=== PATIENT | male | born 1955 | race Caucasian/White ===

== ENCOUNTER 2023-11-15 13:48 | Outpatient (OUT) | payer OTHER, SELFPAY ==
--- NOTE | 2023-11-15 13:56 | CA_ITS ---
Patient Name: ANG RESENDIZ MR#: [id number] : 1955 Exam Date: 11/15/2023 Ordering Doctor: DR JUAN SIFUENTES M.D. ECHOCARDIOGRAM REPORT PROCEDURE: CA ECHO DOPPLER COMPLETE INDICATIONS: VSD, Nonrheumatic mitral regurgitation COMPARISON: None. DESCRIPTION: COMPLETE ECHOCARDIOGRAM Real-time transthoracic echocardiography with 2D, M-mode, spectral and color flow Doppler performed. QUALITY: Technical quality was good. LEFT VENTRICLE: Normal chamber size. Borderline left ventricular hypertrophy. Global left ventricular systolic function is normal. LV EF: Visual estimation of left ventricular ejection fraction is 65-70%. DIASTOLIC: Normal diastolic function. ATRIAL SEPTUM: LEFT ATRIUM: Mild dilatation. RIGHT ATRIUM: Moderate dilatation. RIGHT VENTRICLE: Mild dilatation. Normal right ventricular systolic function. TRICUSPID VALVE: Normal mobility and thickness. No stenosis with trivial regurgitation. Mild pulmonary hypertension. RVSP 36 mmHg MITRAL VALVE: Very mild anterior and posterior mitral valve leaflet prolapse. No evidence of mitral valve stenosis. There is no mitral annular calcification. Trivial mitral regurgitation. AORTIC VALVE: Normal trileaflet appearance. Thickened aortic valve. Normal leaflet mobility. No evidence of aortic valve stenosis. Mild aortic regurgitation. AORTIC ROOT: Normal diameter and appearance. PULMONIC VALVE: Normal thickness and mobility. No stenosis. Mild regurgitation. PERICARDIUM: No evidence of pericardial effusion. IVC: Moderate dilatation. Measuring 2.4 cm. Collapses with inspiration. PLEURA: CONCLUSION: 1. The left ventricle is normal in size and exhibits normal systolic function. LVEF is estimated at 65 to 70%. 2. Mild right ventricular dilatation with normal systolic function. 3. Mild to moderate biatrial dilatation. 4. Very mild bileaflet mitral valve prolapse without significant regurgitation or stenosis. 5. Mild aortic, tricuspid and pulmonic regurgitation. 6. Mildly elevated right-sided pressures. RVSP is 36 mmHg. 7. The previously described perimembranous ventricular septal defect was not well-visualized during this study. Adult Echocardiography Procedure Report Left Ventricle LVEDD (3.7 - 5.6 cm): 4.70 cm LVESD (2.2 - 4.0 cm): 2.91 cm LVIVS thickness (0.6 - 1.2 cm): 0.97 cm LVPW thickness (0.5 - 1.0 cm): 1.07 cm e': 0.16 m/s E - e': 7.79 LVOT Max Gradient: 3.37 mm[Hg] LVOT Area (cm2): 0.92 m/s Peak Velocity (LVOT): 0.92 m/s Mean Velocity (LVOT): 0.54 m/s LVOT Diameter 2.00 cm Left Ventricular Ejection Fraction: 65-70 % Left Atrium LA Volume Index (2D A2C): 32.39 ml/m2 Left Atrium Systolic Dimension: 3.54 cm Mitral Valve MV E to A Ratio: 1.83 Mitral Valve A-Wave Peak Velocity: 0.68 m/s Mitral Valve E-Wave Peak Velocity: 1.24 m/s Right Ventricle RV Internal Diastolic Dimension: 4.32 cm Aorta AO Root Diam: 3.23 cm Ascending Ao Diam: 2.77 cm Aortic Valve AoV Area (Peak Mau): 2.47 cm2, 2.47 cm2 AoV Area (VTI): 2.51 cm2, 2.51 cm2 Peak Velocity(Antegrade Flow): 1.17 m/s Peak Gradient(Antegrade Flow): 5.49 mm[Hg] Mean Velocity(Antegrade Flow): 0.77 m/s Mean Gradient(Antegrade Flow): 2.83 mm[Hg] Velocity Time Integral: 30.89 cm Tricuspid Valve Peak Velocity (Regurgitant Flow): 2.63 m/s, 2.60 m/s, 2.35 m/s Pulmonic Valve Mean Gradient: 2.27 mm[Hg], 2.70 mm[Hg] Mean Velocity: 0.70 m/s, 0.78 m/s Peak Velocity: 1.01 m/s Peak Gradient: 3.81 mm[Hg], 4.39 mm[Hg] Right Atrium Right Atrium Systolic Pressure: 134.72 ml, 134.72 ml Dictated by: Juan Sifuentes M.D. on 11/15/2023 at 18:27 Approved by: Juan Sifuentes M.D. on 11/15/2023 at 18:41
== END 2023-11-15 13:49 | disposition home or self-care (01) ==
LOC: CARD 13:52
PROVIDERS: PCP Family Medicine; Visit Provider Internal Medicine Interventional Cardiology
DX: Q21.0 Ventricular septal defect (principal); I34.0 Nonrheumatic mitral (valve) insufficiency
CPT/HCPCS: 93306

== ENCOUNTER 2024-12-05 13:44 | Outpatient (OUT) | payer MEDICARE, SELFPAY ==
--- OUTSIDE RECORDS SUMMARY | 2024-06-05 09:00 | XMS_ITS ---
Author Organization [facility] in [place] Address [address] [place] [address] Care Team Providers Care Founder And Chief Technical Officer Name Role Phone Omayra Pope CNP Primary Care Provider Yaron Sabillon [phone] Allergies Allergen (clinical drug ingredient) Drug/Non Drug Allergy documented on EMR Reaction Allergy Type Onset Date Status Penicillin Edema Drug Allergy Active REASON FOR VISIT face to face LILA Medications Medication SIG (Take, Route, Frequency, Duration) Notes Start Date End Date Status Atorvastatin Calcium 40 MG 1 tablet Oral ly Once a day Active Eliquis 5 MG 1 tablet Orally Twic e a day Active Lisinopril 10 MG TAKE 1 TABLET BY OMAYRA TH EVERY DAY IN THE MORNING Oral for 90 Days Active Social History Tobacco Use: Social History Observation Description Date Details (start date - stop date) Never Smoker NA - NA Tobacco Control (Standard) Question Answer Notes Tobacco use: Nonsmoker Vital Signs Weight 202.2 lbs 06/05/2024 Height 72 in 06/05/2024 Blood pressure systolic 129 mm Hg 06/05/19 25 Blood pressure diastolic 75 mm Hg 025 Temperature 97.0 degrees Fahrenheit 06/05/19 25 Heart Rate 63 /min 06/05/2024 Respiratory Rate 18 /min 06/05/2024 BMI 27.42 kg/m2 06/05/2024 Oximetry 98 % 06/05/2024 Encounters Encounter Location Date Provider Diagnosis Pulmonary Medicine [address] [address] 06/05/2024 Yaron Fernandez Obstructive sleep apnea G47.33 ; Cough variant asthma J45.991 and Multiple pulmonary nodules R91.8 Assessments Encounter Date Diagnosis (ICD Code) Assessment Notes Treatment Notes Treatment Clinical Notes Section Notes 06/05/2024 Obstructive sleep apnea (ICD-10 - G47.33) PSG 01/12/2022: AHI 25 Zncw-eu-pxpi encounter performed with the patient to document continued need for PAP therapy. -PSG 01/12/2022: AHI 25 -CPAP Titration 02/09/2022: AHI 4 with CPAP [id number] THE FOLLOWING IS HISTORICAL DATA FROM 08/30/2023: -Compliance was reviewed from: 08/01/2022 - 08/30/2022-Total days used: (87%)-Total of all days >4 hours of use: 24/30 (80%)-Current mode & pressures: CPAP 10cm H2O -Initial AHI (01/12/2022): 25-Residual AHI: 1.4-Air leak: Median 4.2L/minWE ATTEMPTED NUMEROUS TIMES TO OBTAIN COMPLIANCE DATA FROM [employer], WHICH THEY NEVER SENT TO US. THIS SHOULD NOT IMPACT HIS COMPLIANCE IN MY PROFESSIONAL OPINION AND IF THERE IS AN ISSUE, IT SHOULD FALL ON [employer] [facility]. Both this office and the patient have had difficulty communicating with [employer] -we still have yet to obtain any compliance data from them. The patient is so frustrated that he changed his insurance companies due to [employer]. He still has a CPAP, but is not using it out of fear that he will be charged for it. He states he has made contact with them about returning it, but he has never received any reply. For now, I advised the patient to use his CPAP at bedtime. Will see if we can get him a new CPAP through a new DME; he previously had [facility] prior to [facility]. The patient voiced that he wants to use his CPAP and will continue to use it. Will send an order to [facility] and see what the neck step are, such as having to wait until his original CPAP is returned, he will continue using his CPAP with a simple DME swab, need to repeat sleep study, or dispensing of a new CPAP. He already has a follow-up appointment August 28; he was instructed to keep this for potential CPAP compliance follow-up. 06/05/2024 Cough variant asthma (ICD-10 - J45.991) Previously on Breo. He states his coughing and wheezing remains resolved. BANKS is attributed to his underlying cardiac issues. 06/05/2024 Multiple pulmonary nodules (ICD-10 - R91.8) Monitored from 2018 - 2021 without any change. Repeat chest CT 11/21/2023 showed no changes from 10/12/2021. No further monitoring is required per current Fleischner Society guidelines. Plan Of Treatment Treatment Notes Assessment Notes Obstructive sleep apnea Ojfd-ow-rgik encounter performed with the patient to document continued need for PAP therapy. -PSG 01/12/2022: AHI 25 -CPAP Titration 02/09/2022: AHI 4 with CPAP [id number] THE FOLLOWING IS HISTORICAL DATA FROM 08/30/2023: -Compliance was reviewed from: 08/01/2022 - 08/30/2022-Total days used: 26/30 (87%)-Total of all days >4 hours of use: 24/30 (80%)-Current mode & pressures: CPAP 10cm H2O -Initial AHI (01/12/2022): 25-Residual AHI: 1.4-Air leak: Median 4.2L/minWE ATTEMPTED NUMEROUS TIMES TO OBTAIN COMPLIANCE DATA FROM [employer], WHICH THEY NEVER SENT TO US. THIS SHOULD NOT IMPACT HIS COMPLIANCE IN MY PROFESSIONAL OPINION AND IF THERE IS AN ISSUE, IT SHOULD FALL ON [employer]. Both this office and the patient have had difficulty communicating with [employer] -we still have yet to obtain any compliance data from them. The patient is so frustrated that he changed his insurance companies due to [employer]. He still has a CPAP, but is not using it out of fear that he will be charged for it. He states he has made contact with them about returning it, but he has never received any reply. For now, I advised the patient to use his CPAP at bedtime. Will see if we can get him a new CPAP through a new DME; he previously had [facility] prior to [facility]. The patient voiced that he wants to use his CPAP and will continue to use it. Will send an order to [facility] and see what the neck step are, such as having to wait until his original CPAP is returned, he will continue using his CPAP with a simple DME swab, need to repeat sleep study, or dispensing of a new CPAP. He already has a follow-up appointment August 28; he was instructed to keep this for potential CPAP compliance follow-up. Cough variant asthma Previously on Breo. He states his coughing and wheezing remains resolved. BANKS is attributed to his underlying cardiac issues. Multiple pulmonary nodules Monitored from 2018 - 2021 without any change. Repeat chest CT 11/21/2023 showed no changes from 10/12/2021. No further monitoring is required per current Fleischner Society guidelines. Next Appt Details Follow Up: Keep 08/28/2024 agnes ointment, Reason: Provider Name:Yaron Fernandez, 08/26/2025 08:00:00 AM, [address] [place], [address], Procedure Notes * Category Sub-Category Detail Notes PFT Data: 11/24/2021: NOMS-F EV1/FVC: 76%-FEV1: 124%-FVC: 128%-ORR01-80%: 127%-Bronchodilator response: None-RV: 50%-T%-DLCO: 87%-Flow-volume loop: Mild scooping 02/14/2017: [facility]-FEV1/FVC: 69%-FEV1: 98%-FVC: 102%-DMZ52-57%: 65%-Bronchodilator response: None-RV: 118%-T%-DLCO: 81%-Flow-volume loop: Mild scooping Progress Notes * Mario RESENDIZ ADOB:1954 (69 yo M)Acc No.[id number]:06/05/2024 Follow Up Patient: Mario ROSE Provider: Bere Fernandez DO :1955 A ge:69 Y S ex:Male Date:06/05/2024 Address:[address] [place], [place] [id number] Pcp:Omayra Pope, COMPUTER CONSULTANT Check In:12:47 PM ESTCheck O ut:01:30 PM EST Subjective: * Chief Complaints: * f arlene to face LILA * HPI: E pworth Sleepiness Scale: Patient is here for new etys-sd-bktm visit regarding his CPAP.� He previously had [facility] with [facility]. Unfortunately, I must say they have been horrible to work with. We have not been able to receive any compliance data to verify his compliance, nor assess for any concerns (e.g. development of central sleep apneas). The patient also complains that he has not been able to receive supplies on a regular basis from them.� [facility]'s lack of communication and response was a major driving factor for the patient to change insurance companies over to [facility] advantage. Due to the change in his insurance company he was brought in today for a [id number]-wslf in the event he can get a new machine since [facility]'s management of the CPAP has been atrocious. Patient stopped using his CPAP after May 22 as he was concerned that he would be charged for the CPAP since his insurance was changing. He states he contacted [facility] about returning the CPAP, but he was told that they would get back to him, and (not unexpectedly) he has yet to receive a return call from them. He has noticed some more fragmented sleep since stopping the CPAP, but he is using humidifier at night which is making it little bit more easy to breathe. He states his cough variant asthma is doing well; he has no complaints of cough or wheezing. He does have baseline shortness of breath with activity. He follows with [facility], with last visit on 11/21/2023 reviewed. They see him for PAF, CAD, and ASD. Patient had a chest CT done on 11/08/2023. There is no change compared to 10/12/2021. He continues to have a calcified right upper lobe 1 cm nodule. MA Intake Comments:. Idabel Sleepiness Scale C michele of dozing while sitting and reading:�2 - Moderate Chance C michele of dozing while watching TV: 2 - Moderate Chance C michele of dozing while sitting in a public place: 1 - Slight Chance C michele of dozing as a passenger in a car for an hour without a break: 1 - Slight Chance C michele of dozing while lying down in the afternoon to rest: 1 - Slight Chance C michele of dozing while sitting and talking to someone: 1 - Slight Chance C michele of dozing while sitting quietly after lunch: 1 - Slight Chance C michele of dozing in a stopped car for a few minutes in traffic: 0 - Never T OTAL SCORE: 9 Patient presents for a follow-up for LILA. Patient states he is not currently using the PAP machine since April due to ongoing issues with the DME company. Patient states he switched insurance companies from [email or web address] to a new insurance for 2024. Patient reports having issues receiving supplies and reports ongoing problems with [email or web address] [facility]. Our office has not been able to obtain compliance data since the patient switched from [employer] to [email or web address] two years ago. Numerous attempts were made to obtain compliance without success. Patient reports great benefit while using his PAP. Patient is under the care of [facility]. * ROS: G eneral/Constitutional: Fever or sweats d enies. C hange of appetite d enies. C hills d enies. W eight Change d enies. H EENT: Dry mouth d enies. S ore throat d enies. N osebleed d enies. O ral Ulcers d enies. P ost Nasal Drip D enies. C ongestion�Admits - with CPAP. H oarseness D enies. C ardiovascular: Tachycardia d enies. C hest pain d enies. P alpitations d enies. R espiratory: Pleurisy D enies. D yspnea d enies. C ough r are, dry. H emoptysis d enies. W heezing d enies. G astrointestinal: Acid Reflux/GERD/Heartburn d enies. M usculoskeletal: Arthralgias/joint pain D enies. S kin: Rash d enies. N eurologic: Seizures d enies. T remor d enies. H ematology: Abnormal Bleeding d enies. P sychiatric: Anxiety d enies. 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 M other: diagnosed with Unspecified heart disease. * Social History: T obacco Use: T obacco Control (Standard) T obacco use: N onsmoker Electronic Cigarette use C urrent user N o M iscellaneous: O ccupation O ccupation: R etieveline, Works part-time [employer] Pets: none. D rugs/Alcohol: D rugs H ave you used drugs other than those for medical reasons in the past 12 months? N o D oes the Patient have a History of Drug Abuse in the Past? N o Caffeine I ntake: n one Do you drink alcohol?: Yes, Socially. Do you smoke marijuana?: Denies. * Medications: T akingAtorvastatin Calcium 40 MG Tablet 1 tablet Orally Once a day Eliquis(Apixaban) 5 MG Tablet 1 tablet Orally Twice a day Lisinopril 10 MG Tablet TAKE 1 TABLET BY MOUTH EVERY DAY IN THE MORNING Oral Medication List reviewed and reconciled with the patientTaking Atorvastatin Calcium 40 MG Tablet 1 tablet Orally Once a day Taking Eliquis(Apixaban) 5 MG Tablet 1 tablet Orally Twice a day Taking Lisinopril 10 MG Tablet TAKE 1 TABLET BY MOUTH EVERY DAY IN THE MORNING Oral Medication List reviewed and reconciled with the patient * Allergies: P enicillin: Edema - Allergyno[Allergies Verified] Objective: * Vitals: W t:202.2lbs, Ht: 72 in, BP:sittin/75mm Hg, Temp:Forehead:97.0F, HR:63/min, RR:18/min, BMI:27.42Index, Oxygen sat %:Room Air:98%, Ht-cm: 182.88 cm, Wt-k.72 kg. * Examination: E xam: GENERAL APPEARANCE: A ppears comfortable, in no distress.� Skin N ormal. Mouth P ink and moist. Oropharynx/Tongue M allampati Class III. Trachea M idline. Chest N ormal. Respiratory Normal M ovements, E ffort N ormal. Auscultation N ormal breath sounds. Cardiac R egular rate and rhythm. Gastrointestinal N ormal. Vascular N o edema. Musculoskeletal N ormal posture. Neurological F ocal, intact. Psychiatric A lert and oriented x3. Mentation/Cognition N ormal. Assessment: * Assessment: 1. O bstructive sleep apnea - G47.33 (Primary) N otes :PSG 01/12/2022: AHI 25 2 . C ough variant asthma - J45.991 3 . M ultiple pulmonary nodules - R91.8 Plan: * Treatment: 2. C ough variant asthma Notes: Previously on Breo. He states his coughing and wheezing remains resolved. BANKS is attributed to his underlying cardiac issues. 3. M ultiple pulmonary nodules Notes: Monitored from 2018 - 2021 without any change. Repeat chest CT 11/21/2023 showed no changes from 10/12/2021. No further monitoring is required per current Fleischner Society guidelines. * Procedures: P FT: Data: 11/24/2021: NOMS -FEV1/FVC: 76% -FEV1: 124% -FVC: 128% -AUW64-29%: 127% -Bronchodilator response: None -RV: 50% -T% -DLCO: 87% -Flow-volume loop: Mild scooping 02/14/2017: [facility] -FEV1/FVC: 69%-FEV1: 98%-FVC: 102%-QNP15-12%: 65%-Bronchodilator response: None- RV: 118%-T%-DLCO: 81%-Flow-volume loop: Mild scooping . * Procedure Codes: * Preventive Medicine: COVID Vaccination: H as patient had COVID Vaccination? COVID Vaccination N o Patient Refused Immunization Status: P neumovacc P t Refused. I nfluenza P t Refused. B oostrix 0 12/13/2022. Screenings/Counseling: F ALL RISK SCREENING Fall Risk Assessment: N o falls in the past year Are you afraid of falling? N o T OBACCO ACTION PLAN Exclusion: M edical Reason Non Smoker Type of Medical Reason: N ot indicated F MAURICIO EXCLUSION Reason: P atient Reason refused/declined Type of Patient Reason: D rug declined by patient B MD ACTION PLAN Above Normal BMI Follow-up D ietary management education, guidance, and counseling * Follow Up: Sonal mtz 08/28/2024 appointment * * Sign off status: Completed Visit Status: C HK (Check Out) true * Provider: Bere Fernandez, DO Date: 0 06/05/2024 Generated for Printi ng/Faxing/eTransmitting on: 0 12/05/2024 01:51 PM EDT History and Physical Notes * HPI (History of Present Illness) Category Sub-Category Detail Notes Category Not es Idabel Sleepiness Scale Idabel Sleepiness Scale Chance of dozing while sitting and reading:: 2 - Moderate Chance Patient presents for a follow-up for LILA. Patient states he is not currently using the PAP machine since April due to ongoing issues with the DME company. Patient states he switched insurance companies from [email or web address] to a new insurance for 2024. Patient reports having issues receiving supplies and reports ongoing problems with [email or web address]. Our office has not been able to obtain compliance data since the patient switched from [employer] to [email or web address] two years ago. Numerous attempts were made to obtain compliance without success. Patient reports great benefit while using his PAP. Patient is under the care of [facility]. Chance of dozing while watching TV:: 2 - Moderate Chance Chance of dozing while sitting in a publ ic place:: 1 - Slight Chance Chance of dozing as a passen theo in a car for an hour without a break:: 1 - Slight Chance Chance of dozing while lying down in the afternoon to rest:: 1 - Slight Chance Chance of dozing while sitting and talki ng to someone:: 1 - Slight Chance Chance of dozing while sitting quietly a fter lunch:: 1 - Slight Chance Chance of dozing in a stopped car for a few minutes in traffic:: 0 - Never TOTAL SCORE:: 9 Examination Category Sub-Category Detail Notes Category Not es Exam GENERAL APPEARANCE: Appears comfortable, in no distress Skin Normal Mouth [place] and moist Trachea Midline Chest Normal Respiratory Normal Movements, Ef fort Normal Auscultation Normal breath sounds Percussion Egophony Bronchophony Fremitus Whispered pectoriloquy Cardiac Regular rate and rhy thm Gastrointestinal Normal Vascular No edema Musculoskeletal Normal posture Neurological Focal, intact Psychiatric Alert and oriented x 3 Mentation/Cognition Normal Oropharynx/Tongue Mallampati Class III
--- OUTSIDE RECORDS SUMMARY | 2024-08-28 09:00 | XMS_ITS ---
Author Organization The [facility] in [place] Address [address] [place] [address] Care Team Providers Care Superintendent Production Name Role Phone Omayra Pope CNP Primary Care Provider Yaron Sabillon [phone] Allergies Allergen (clinical drug ingredient) Drug/Non Drug Allergy documented on EMR Reaction Allergy Type Onset Date Status Penicillin Edema Drug Allergy Active REASON FOR VISIT 1YEAR-LILA Medications Medication SIG (Take, Route, Frequency, Duration) Notes Start Date End Date Status Lisinopril 10 MG TAKE 1 TABLET BY OMAYRA TH EVERY DAY IN THE MORNING Oral for 90 Days Active Eliquis 5 MG 1 tablet Orally Twic e a day Active Atorvastatin Calcium 40 MG 1 tablet Oral ly Once a day Active Social History Tobacco Use: Social History Observation Description Date Details (start date - stop date) Never Smoker NA - NA Tobacco Control (Standard) Question Answer Notes Tobacco use: Nonsmoker Vital Signs Weight 198.8 lbs 08/28/2024 Height 72 in 08/28/2024 Blood pressure systolic 114 mm Hg 08/29/19 25 Blood pressure diastolic 61 mm Hg 025 Temperature 96.6 degrees Fahrenheit 08/29/19 25 Heart Rate 68 /min 08/28/2024 Respiratory Rate 18 /min 08/28/2024 BMI 26.96 kg/m2 08/28/2024 Oximetry 97 % 08/28/2024 Encounters Encounter Location Date Provider Diagnosis Pulmonary Medicine [address] [address] 08/28/2024 Yaron Fernandez Obstructive sleep apnea G47.33 ; Cough variant asthma J45.991 and Multiple pulmonary nodules R91.8 Assessments Encounter Date Diagnosis (ICD Code) Assessment Notes Treatment Notes Treatment Clinical Notes Section Notes 08/28/2024 Obstructive sleep apnea (ICD-10 - G47.33) PSG 01/12/2022: AHI 25 Lksg-jy-lwct encounter performed with the patient to document continued need for PAP therapy. -Current DME: [facility] -PSG 01/12/2022: AHI 25 -CPAP Titration 02/09/2022: AHI 4 with CPAP [id number] -Compliance was reviewed from 07/28/2024 - 08/26/2024 -Total days used: 30 (100%) -Total of all days >4 hours of use: 30 (100%) -Current model, mode, & set pressure: AirSense 11 Auto [id number] -Residual AHI: 0.7 -Air leak (median): 4.1L/min -Mask/harness fitting: Well -Sleep quality: Will wake up almost every night with flatus -Daytime hypersomnolence: Denies with CPAP use -Recommendations: He is doing very well with his CPAP and states he is very happy with the change in DME from [facility] to [facility]. He has superb compliance (100%). His gerri complaint is increased flatus with CPAP use (about 3-4AM every night). He denies noticeable aerophagia, but it is possible he could have silent aerophagia. He does not sleep with a wedge pillow. Discussed strategies to decrease production of gas, such as monitoring consumption of cruciferous vegetables, etc. Other option is to change him from the set pressure of [id number] to auto-CPAP, which would be reasonable in this patient d/t his excellent compliance and residual AHI 0.7. Patient voiced agreement. Will send order for auto-CPAP [id number] - I asked patient to let us know how he tolerates the change in settings. Unless there are any other major issues, will have him return in 1 year. -The patient was reminded to continue to wear the PAP @ bedtime and with any naps. -This bxvs-xi-afei visit comes with my authorization that the patient's DME may request to renew, reorder, and/or replace tubing, supplies, mask, and/or PAP device (if applicable). 08/28/2024 Cough variant asthma (ICD-10 - J45.991) Prior treatment: Bridgette Patient has no complaints today. 08/28/2024 Multiple pulmonary nodules (ICD-10 - R91.8) Monitored from 2018 - 2021 without any change. Repeat chest CT 11/21/2023 showed no changes from 10/12/2021. No further monitoring is required per current Fleischner Society guidelines. Plan Of Treatment Treatment Notes Assessment Notes Obstructive sleep apnea Radr-qr-vntu encounter performed with the patient to document continued need for PAP therapy. -Current DME: [facility] -PSG 01/12/2022: AHI 25 -CPAP Titration 02/09/2022: AHI 4 with CPAP [id number] -Compliance was reviewed from 07/28/2024 - 08/26/2024 -Total days used: 30/ (100%) -Total of all days >4 hours of use: 30/30 (100%) -Current model, mode, & set pressure: AirSense 11 Auto [id number] -Residual AHI: 0.7 -Air leak (median): 4.1L/min -Mask/harness fitting: Well -Sleep quality: Will wake up almost every night with flatus -Daytime hypersomnolence: Denies with CPAP use -Recommendations: He is doing very well with his CPAP and states he is very happy with the change in DME from [facility] to [facility]. He has superb compliance (100%). His gerri complaint is increased flatus with CPAP use (about 3-4AM every night). He denies noticeable aerophagia, but it is possible he could have silent aerophagia. He does not sleep with a wedge pillow. Discussed strategies to decrease production of gas, such as monitoring consumption of cruciferous vegetables, etc. Other option is to change him from the set pressure of 87miZ8I to auto-CPAP, which would be reasonable in this patient d/t his excellent compliance and residual AHI 0.7. Patient voiced agreement. Will send order for auto-CPAP [id number] - I asked patient to let us know how he tolerates the change in settings. Unless there are any other major issues, will have him return in 1 year. -The patient was reminded to continue to wear the PAP @ bedtime and with any naps. -This imyg-sa-evpo visit comes with my authorization that the patient's DME may request to renew, reorder, and/or replace tubing, supplies, mask, and/or PAP device (if applicable). Cough variant asthma Prior treatment: Bridgette Patient has no complaints today. Multiple pulmonary nodules Monitored from 2018 - 2021 without any change. Repeat chest CT 11/21/2023 showed no changes from 10/12/2021. No further monitoring is required per current Fleischner Society guidelines. Next Appt Details Follow Up: 1 Year, Reason: O SA Provider Name:Yaron Fernandez, 08/26/2025 08:00:00 AM, [address] [place], [address], Procedure Notes * Category Sub-Category Detail Notes PFT Data: 11/24/2021: NOMS-F EV1/FVC: 76%-FEV1: 124%-FVC: 128%-JZI42-00%: 127%-Bronchodilator response: None-RV: 50%-T%-DLCO: 87%-Flow-volume loop: Mild scooping 02/14/2017: [facility]-FEV1/FVC: 69%-FEV1: 98%-FVC: 102%-HBJ23-36%: 65%-Bronchodilator response: None-RV: 118%-T%-DLCO: 81%-Flow-volume loop: Mild scooping Progress Notes * Mario RESENDIZ ADOB:1954 (69 yo M)Acc No.[id number]:08/28/2024 Follow Up Patient: Remy ZAKMario JACOBS Angélica Provider: Bere Fernandez DO :1955 A ge:69 Y S ex:Male Date:08/28/2024 Address:[address] [place], [place] [id number] Pcp:Omayra Pope, [place]ER Check In:12:49 PM ESTCheck O ut:01:46 PM EST Subjective: * Chief Complaints: * 1 YEAR-LILA * HPI: E pworth Sleepiness Scale: Patient changed insurances and was able to change from [facility] (which both he and this office have had an atrocious time getting anything from) to [facility]. He states he has had an excellent interaction with [facility] and is very, very happy with them. He has been on his CPAP, set up on 06/18/2024, a nd voices excellent response to it. AHI is only 0.7. 100% compliance. Only concern is bloating & flatus...he states he wakes up nearly every night around 3-4AM and has excessive flatulence. I asked him about any aerophagia, but he denied any bloating in his stomach. MA Intake Comments:. [place] Sleepiness Scale C michele of dozing while sitting and reading:�2 - Moderate Chance C michele of dozing while watching TV: 2 - Moderate Chance C michele of dozing while sitting in a public place: 2 - Moderate Chance C michele of dozing as a passenger in a car for an hour without a break: 1 - Slight Chance C michele of dozing while lying down in the afternoon to rest: 2 - Moderate Chance C michele of dozing while sitting and talking to someone: 2 - Moderate Chance C michele of dozing while sitting quietly after lunch: 2 - Moderate Chance C michele of dozing in a stopped car for a few minutes in traffic: 0 - Never T OTAL SCORE: 1 3 Patient presents for a follow-up for LILA.DME:[facility]. Patient denies any complaints or concerns with his machine. Patient reports good benefit. Patient states since he has switched DME companies from [employer] now to [facility] he has everything he needs for his machine. Patient is under the care of [facility] Cardiology. * ROS: G eneral/Constitutional: Fever or sweats d enies. C hange of appetite d enies. C hills d enies. W eight Change d enies. H EENT: Dry mouth d enies. S ore throat d enies. N osebleed d enies. O ral Ulcers d enies. P ost Nasal Drip D enies. C ongestion�Denies. H oarseness D enies. C ardiovascular: Tachycardia d enies. C hest pain d enies. P alpitations d enies. R espiratory: Pleurisy D enies. D yspnea d enies. C ough r are, dry. H emoptysis d enies. W heezing d enies. G astrointestinal: Acid Reflux/GERD/Heartburn d enies. E xcessive Flatulence a round 3-4AM every night. M usculoskeletal: Arthralgias/joint pain D enies. S kin: Rash d enies. N eurologic: Seizures d enies. T remor d enies. H ematology: Abnormal Bleeding d enies. P sychiatric: Anxiety d enies. * Active Problem List D64.9 Anemia, unspecified Modified On:08/31/2022 Status:confirmed J45.991 Cough variant asthma Modified On:08/30/2023 Status:confirmed Z79.51 nursing home (current) use of inhaled steroids Modified On:08/31/2022 Status:confirmed I34.1 Mitral valve prolaps e Modified On:08/31/2022 Status:confirmed I25.10 Coronary artery dise ase Modified On:08/30/2023 Status:confirmed G47.33 Obstructive sleep ap robbie Modified On:08/30/2023 Status:confirmed R91.8 Multiple pulmonary n odules Modified On:08/31/2022 Status:confirmed * Medical History: * Surgical History: [...] M iscellaneous: O ccupation O ccupation: R etired, Works part-time [employer] Pets: none. D rugs/Alcohol: D rugs H [...] - Allergyno[Allergies Verified] Objective: * Vitals: W t:198.8lbs, Ht: 72 in, BP:sittin/61mm Hg, Temp:Forehead:96.6F, HR:68/min, RR:18/min, BMI:26.96Index, Oxygen sat %:Room Air:97%, Ht-cm: 182.88 cm, Wt-k.18 kg. * Examination: E xam: GENERAL APPEARANCE: [...] Treatment: 2. C ough variant asthma Notes: Prior treatment: Breo Patient has no complaints today. 3. M ultiple pulmonary nodules Notes: Monitored from 2018 - 2021 without any change. Repeat chest CT 11/21/2023 showed no changes from 10/12/2021. No further monitoring is required per current Fleischner Society guidelines. * Procedures: P FT: Data: 11/24/2021: NOMS -FEV1/FVC: 76% -FEV1: 124% -FVC: 128% -CCT25-13%: 127% -Bronchodilator response: None -RV: 50% -T% -DLCO: 87% -Flow-volume loop: Mild scooping 02/14/2017: [facility] -FEV1/FVC: 69%-FEV1: 98%-FVC: 102%-CJO10-88%: 65%-Bronchodilator response: None- RV: 118%-T%-DLCO: 81%-Flow-volume loop: [...] Reason: D rug declined by patient B PA ACTION PLAN Above Normal BMI Follow-up D ietary management education, guidance, and counseling * Follow Up: 1 Year (Reason: LILA) * * Sign off status: Completed Visit Status: C HK (Check Out) true * Provider: Bere Fernandez DO Date: 0 08/28/2024 Generated for Charisma hood/Ghulam/Waqaritting on: 0 12/05/2024 01:51 PM EDT History and Physical Notes * HPI (History of Present Illness) Category Sub-Category Detail Notes Category Not es [place] Sleepiness Scale [place] Sleepiness Scale Chance of dozing while sitting and reading:: 2 - Moderate Chance Patient presents for a follow-up for LILA.DME:[facility]. Patient denies any complaints or concerns with his machine. Patient reports good benefit. Patient states since he has switched DME companies from [employer]) now to [facility] he has everything he needs for his machine. Patient is under the care of [facility] Cardiology. Chance of dozing while watching TV:: 2 - Moderate Chance Chance of dozing while sitting in a publ ic place:: 2 - Moderate Chance Chance of dozing as a passen theo in a car for an hour without a break:: 1 - Slight Chance Chance of dozing while lying down in the afternoon to rest:: 2 - Moderate Chance Chance of dozing while sitting and talki ng to someone:: 2 - Moderate Chance Chance of dozing while sitting quietly a fter lunch:: 2 - Moderate Chance Chance of dozing in a stopped car for a few minutes in traffic:: 0 - Never TOTAL SCORE:: 13 Examination Category Sub-Category Detail Notes Category Not es Exam GENERAL APPEARANCE: Appears comfortable, in no distress Skin Normal Mouth [place] and moist Trachea Midline Chest Normal Respiratory Normal Movements, Ef fort Normal Auscultation Normal breath sounds Percussion Egophony Bronchophony Fremitus Whispered pectoriloquy Cardiac Regular rate and rhy thm Gastrointestinal Normal Vascular No edema Musculoskeletal Normal posture Neurological Focal, intact Psychiatric Alert and oriented x 3 Mentation/Cognition Normal Oropharynx/Tongue Mallampati Class III
--- OUTSIDE RECORDS SUMMARY | 2024-09-24 07:24 | XMS_ITS ---
Author Organization The [facility] in [place] Address [address] [place] [address] Care Team Providers Care Armament Repairer Name Role Phone Omayra Pope CNP Primary Care Provider Unava ilYaron Cuello Unavailable [phone] REASON FOR VISIT PAP Machine Encounters Encounter Location Date Provider Diagnosis Pulmonary Medicine [place] [address] [place] [address] 09/24/2024 Yaron Fernandez Plan Of Treatment Next Appt Details Provider Name:Yaron Fernandez, 08/26/2025 08:00:00 AM, [address] [place], [address], Progress Notes * Mario RESENDIZ ADOB:1954 (69 yo M)Acc No.[id number]:09/24/2024 Patient: Mario ROSE :1955 A ge:69 Y S ex:Male Address:[address] [place] [address] [address], [place], [address] * true * Date: Generated for Charisma hood/Falaurenceg/eTransmitting on: 0 12/05/2024 01:50 PM EDT
--- OUTSIDE RECORDS SUMMARY | 2024-12-05 13:51 | XMS_ITS | Encounter Summary ---
Author Organization [facility] Address [address] [place] [address] Care Team Providers Care Public Health Educator Name Role Phone Maddie Spencer MD Unavailable Maddie Spencer MD Primary Care Provider [phone] Maddie Spencer MD Unavailable [phone] Encounter Details Date Type Department Care Team (Late st Contact Info) Description 01/14/2023 Abstract [facility] [address] [place] [address] Maddie Spencer MD Social History Tobacco Use Types Packs/Day Years Used Date Smoking Tobacco: Never Assessed Sex and Gender Information Value Date Recorded Sex Assigned at Male 11/07/2023 8:12 PM EDT Legal Sex Male 8:01 PM EDT Gender Identity Male 11/07/2023 8:12 PM EDT Sexual Orientation Not on file documented as of this encounter Plan of Treatment Not on file documented as of this encounter Visit Diagnoses Not on filedocumented in this encounter Care Teams Public Health Educator Relationship Specialty Start Date End Date Maddie Spencer MD PCP - [facility] 03/23/21 05/22/24 Maddie Spencer MD PCP - General Family Medicine 09/28/22 Maddie Spencer MD PCP - [place] 05/23/2405/22 documented as of this encounter
--- OUTSIDE RECORDS SUMMARY | 2024-12-05 13:51 | XMS_ITS | Clinical Summary ---
Author Organization [facility] Healthcare Address [address] [place] [address] Care Team Providers Care Power Supply Engineer Name Role Phone Maddie Spencer MD Primary Care Provider [phone] Maddie Spencer MD Unavailable [phone] Allergies Active Allergy Reactions Criticality Noted Date Comments Penicillins 07/16/2022 Other Reaction(s): tongue swelling Medications Eliquis 5 MG tablet Take 1 tablet by mouth in the morning and 1 tablet before bedtime. 3 Active atorvastatin (Lipitor) 40 MG tablet Take 40 mg by mouth at bedtime 4 Active lisinopril 10 MG tabletIndication s:Essential hypertension TAKE 1 TABLET BY MOUTH EVERY DAY IN THE MORNING 90 tablet 3 4 Active NON FORMULARY PROSYNBIOTIC / LIVAPLEX/ ZINCHELATE Active omega-3 acid ethyl esters (Lovaza) 1 g capsule Take 1 g by mouth in the morning and 1 g before bedtime. 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 10/11/2023 Mild mitral valve prolapse 10/11/2023 Obstructive sleep apnea (adult) (pediatric) 09/21 Occupational exposure to environmental pollution 10/11/2023 Paroxysmal atrial fibrillation 10/11/2023 Primary hypertension 10/11/2023 Pulmonary arterial hypertension 10/11/2023 Tinea manuum 10/11/2023 Pulmonary nodule seen on imaging study Cough variant asthma 09/01/2023 Multiple pulmonary nodules 09/01/2023 Coronary artery disease invo lving [place] coronary artery of [place] heart without angina pectoris 07/16/2022 Overview (10/11/2023): Last Assessment & Plan: Coronary artery disease is stable without concerning symptoms Another extended d/w pt and regarding noted 50% stenosis of RCA and sxwe-wca-njecrjklycn CAD of all other coronary arteries, importance of prevention of worsening CAD and stenosis r/t cholesterol build up and importance of continuing lipitor/statin and he voiced understanding and is agreeable to resume lipitor. Script sent and will repeat lipid and liver function in 2-3 months- script given to pt. continue risk factor modifications- heart healthy diet, regular exercise as tolerated and continue all medications. Atrial flutter 01/11/2022 Overview (10/11/2023): Last Assessment & Plan: EKG today sinus bradycardia After extended discussion pt is willing to resume eliquis anticoagulation for stroke prophylaxis Script sent to pharmacy Chest pain 12/21/2021 Dyspnea on exertion 12/21/2021 Overview (10/11/2023): Last Assessment & Plan: Currently stable Lightheadedness 12/21/2021 Encounters Date Type Department Care Team Description 10/20/2024 Results Follow-Up [facility] [address] [place] [phone] Omayra Pope NP 10/17/2024 2:00 PM EDT Office Visit [facility] [address] [place] [phone] Omayra Pope NP Medicare annual wellness visit, subsequent (Primary Dx); Primary hypertension ; Paroxysmal atrial fibrillation (HCC); Pulmonary arterial hypertension (HCC); Ventricular septal defect (HCC); Cough variant asthma (HCC); Coronary artery disease involving [place] coronary artery of [place] heart without angina pectoris ; Obstructive sleep apnea (adult) (pediatric); Atrial flutter, unspecified type (HCC); Mild mitral valve prolapse; Atrial dilatation, bilateral; Multiple pulmonary nodules; Anemia, unspecified type; Dyspnea on exertion; Atrial septal defect (HHS-HCC); Cardiomegaly; Tinea manuum; Dependence on other enabling machines and devices; Occupational exposure to environmental pollution; Screening for prostate cancer; Encounter for lipid screening for cardiovascular disease 10/17/2024 [employer]Senso flowsheet [facility] [address] [place] [address] Omayra Pope NP 10/17/2024 Travel from Last 3 Months Immunizations Immunization Administration Dates Next Due Tdap 12/13/2022,05/08/2012 Family History Medical History Relation Name Comments Dementia Father Heart disease Father Heart disease Mother Relation Name Status Comments Brother X 1 Father Mother Social History Tobacco Use Types Packs/Day Years Used Date Smoking Tobacco: Never Passive Smoke Exposure: Past Smokeless Tobacco: Never Tobacco Cessation:Counseling Given: Not Answered Alcohol Use Standard Drinks/Week Comments Yes 0 (1 standard drink = 0.6 oz pur e alcohol) PHQ-2 Answer Date Recorded Patient Health Questionnaire-2 Score 0 10/17/2024 Sex and Gender Information Value Date Recorded Sex Assigned at Male 11/07/2023 8:12 PM EDT Legal Sex Male 8:01 PM EDT Gender Identity Male 11/07/2023 8:12 PM EDT Sexual Orientation Not on file Last Filed Vital Signs Vital Sign Reading Time Taken Comments Blood Pressure 128/72 10/17/2024 2:17 PM EDT Pulse 60 10/17/2024 2:17 PM EDT Temperature - - Respiratory Rate - - Oxygen Saturation - - Inhaled Oxygen Concentration - - Weight 89.4 kg (197 lb) 10/17/2024 2:17 PM EDT Height 182.9 cm (6') 10/17/2024 2:17 PM EDT Body Mass Index 26.72 10/17/2024 2:17 PM EDT Plan of Treatment Health Maintenance Due Date Last Done Comments CT Colonography 1955 Colonoscopy 1955 FOBT 1955 Sigmoidoscopy 1955 Pneumococcal Vaccine: 65+ Ye ars (1 of 2 - PCV) 1974 FIT 06/14/2023 06/14/2022 Influenza Vaccine (#1) 2025 Medicare Annual Wellness (AWV) 10/17/2025 0 10/17/2024, 10/17/2024, 10/12/2023, Additional history exists Colorectal Cancer Screening 11/03/2026 FIT-DNA 11/03/2026 11/04/2023 Procedures Procedure Name Priority Date/Time Associated Diagnosis Comments URINALYSIS REFLEX Routine 10/19/2024 9:2 9 AM EDT Primary hypertension LIPID PANEL Routine 10/19/2024 9:20 AM EDT Encounter for lipid screening for cardiovascular disease PSA, TOTAL Routine 10/19/2024 9:20 AM EDT Screening for prostate cancer COMPREHENSIVE METABOLIC PANEL Routine 10/19/2024 9:20 AM EDT Primary hypertension CBC Routine 10/19/2024 9:20 AM EDT Anemia, unspecified type LAB COLOGUARD COLON CANCER SCREEN Routine 11/04/2023 7:31 AM EDT Screening for colon cancer FECAL GLOBIN BY IMMUNOCHEMISTRY Routine 06/14/2022 12:00 PM EST from Last 3 Months or Most Recently Relevant to Health Maintenance Results * Urinalysis with reflex microscopic (clean catch) (10/19/2024 9:29 AM EDT) COLOR YELLOW YELLOW [facility] APPEARANCE CLEAR CLEAR [facility] SPECIFIC GRAVITY 1.015 1.001 - 1.035 [facility] PH 7.0 5.0 - 8.0 [facility] GLUCOSE NEGATIVE NEGATIVE [facility] BILIRUBIN NEGATIVE NEGATIVE [facility] KETONES NEGATIVE NEGATIVE [facility] OCCULT BLOOD NEGATIVE NEGATIVE [facility] PROTEIN NEGATIVE NEGATIVE [facility] NITRITE NEGATIVE NEGATIVE [facility] LEUKOCYTE ESTERASE NEGATIVE NEGATIVE [facility] SQUAMOUS EPITHELIAL CELLS 0-5 < OR = 5 /HPF [facility] Urine Urine specimen obtained by clean catch procedure / Unknown 10/19/2024 9:29 AM EDT 10/19/2024 2:29 PM EDT Narrative Resulting Agency Comment Performing Organization Information Site ID: [facility] Name: [facility] Address: [address] [place] [phone] Director: Jessica Vidales Omayra Pope ADJUNCT MATHEMATICS INSTRUCTOR LAB URINE ORDERABLES Final Result Performing Organization Address City/[facility]/ZIP Co de Phone Number [facility] * CBC (10/19/2024 9:20 AM EDT) Pathologist [facility] WHITE BLOOD CELL COUNT 4.4 3.8 - 10.8 Thousand/u L [facility] RED BLOOD CELL COUNT 4.30 4.20 - 5.80 Million/uL [facility] HEMOGLOBIN 13.3 13.2 - 17.1 g/dL [facility] HEMATOCRIT 40.0 38.5 - 50.0 % [facility] MCV 93.0 80.0 - 100.0 fL [facility] MCH 30.9 27.0 - 33.0 pg [facility] MCHC 33.3 32.0 - 36.0 g/dL [facility] Comment: For adults, a slight decrease in the calculated MCHC value (in the range of 30 to 32 g/dL) is most likely not clinically significant; however, it should be interpreted with caution in correlation with other red cell parameters and the patient's clinical condition. RDW 13.4 11.0 - 15.0 % [facility] PLATELET COUNT 161 140 - 400 Thousand/u L [facility] MPV 11.4 7.5 - 12.5 fL [facility] Blood Venous blood specimen / Unknown 10/19/2024 9:20 AM EDT 10/19/2024 3:53 PM EDT Narrative [facility] - 10/20/2024 12:33 AM EDT MULTIPLE COLLECTION TIMES FOR SAME TEST TYPE. Resulting Agency Comment Performing Organization Information Site ID: [facility]TW Name: [facility] Address: [address] [place] [phone] Director: Jessica Vidales Omayra Pope ADJUNCT MATHEMATICS INSTRUCTOR LAB BLOOD ORDERABLES Final Result Performing Organization Address City/[facility]/ZIP Co de Phone Number [facility] * PSA (10/19/2024 9:20 AM EDT) PSA, TOTAL 0.24 < OR = 4.00 ng/mL [facility] Comment: The total PSA value from this assay system is standardized against the WHO standard. The test result will be approximately 20% lower when compared to the equimolar-standardized total PSA (Remington Effort). Comparison of serial PSA results should be interpreted with this fact in mind. This test was performed using the Siemens chemiluminescent method. Values obtained from different assay methods cannot be used interchangeably. PSA levels, regardless of value, should not be interpreted as absolute evidence of the presence or absence of disease. Blood Venous blood specimen / Unknown 10/19/2024 9:20 AM EDT 10/19/2024 3:53 PM EDT Narrative [facility] - 10/20/2024 12:33 AM EDT MULTIPLE COLLECTION TIMES FOR SAME TEST TYPE. Resulting Agency Comment Performing Organization Information Site ID: QPT Name: [facility] Address: [address] [place] [address], [address] [place] [phone] Director: Russ Love MD Omayra Pope NP LAB BLOOD ORDERABLES Final Result [facility] * Lipid panel (10/19/2024 9:20 AM EDT) CHOLESTEROL, TOTAL 120 <200 mg/dL [facility] HDL CHOLESTEROL 49 > OR = 40 mg/dL [facility] TRIGLYCERIDES 35 <150 mg/dL [facility] LDL CHOLESTEROL 61 mg/dL (calc) [facility] Comment: Reference range: <100 Desirable range <100 mg/dL for primary prevention; <70 mg/dL for patients with CHD or diabetic patients with > or = 2 CHD risk factors. LDL-C is now calculated using the Nikunj calculation, which is a validated novel method providing better accuracy than the Friedewald equation in the estimation of LDL-C. Arnel SULTANA et al. ASTRID. 2013;310(19): 8062-1631 (http://education.[employer].Spotivate/faq/VFY930) CHOL/HDLC RATIO 2.4 <5.0 (calc) [facility] NON HDL CHOLESTEROL 71 <130 mg/dL (calc) [facility] Comment: For patients with diabetes plus 1 major ASCVD risk factor, treating to a non-HDL-C goal of <100 mg/dL (LDL-C of <70 mg/dL) is considered a therapeutic option. Blood Venous blood specimen / Unknown 10/19/2024 9:20 AM EDT 10/19/2024 3:53 PM EDT Narrative [facility] - 10/20/2024 12:33 AM EDT MULTIPLE COLLECTION TIMES FOR SAME TEST TYPE. Resulting Agency Comment Performing Organization Information Site ID: QPT Name: [facility] Address: [address] [place] [address], [address] [place] [phone] Director: Russ Love MD Omayra Pope NP LAB BLOOD ORDERABLES Final Result [facility] * Comprehensive metabolic panel (10/19/2024 9:20 AM EDT) [facility] Glucose 89 65 - 99 mg/dL [facility] Comment: Fasting reference interval BUN 16 7 - 25 mg/dL [facility] Creatinine 0.92 0.70 - 1.35 mg/dL [facility] EGFR 90 > OR = 60 mL/min/1. 73m2 [facility] BUN/CREATININE RATIO SEE NOTE: (calc) [facility] Comment: Not Reported: BUN and Creatinine are within reference range. Sodium 140 135 - 146 mmol/L [facility] Potassium, Bld 4.3 3.5 - 5.3 mmol/L [facility] Chloride 105 98 - 110 mmol/L [facility] Carbon Dioxide 29 20 - 32 mmol/L [facility] Calcium 9.7 8.6 - 10.3 mg/dL [facility] PROTEIN, TOTAL 6.8 6.1 - 8.1 g/dL [facility] ALBUMIN 4.2 3.6 - 5.1 g/dL [facility] GLOBULIN 2.6 1.9 - 3.7 g/dL (calc) [facility] ALBUMIN/GLOBULIN RATIO 1.6 1.0 - 2.5 (calc) [facility] BILIRUBIN, TOTAL 0.9 0.2 - 1.2 mg/dL [facility] ALKALINE PHOSPHATASE 73 35 - 144 U/L [facility] AST 21 10 - 35 U/L [facility] ALT 15 9 - 46 U/L [facility] Blood Venous blood specimen / Unknown 10/19/2024 9:20 AM EDT 10/19/2024 3:53 PM EDT Narrative [facility] - 10/20/2024 12:33 AM EDT MULTIPLE COLLECTION TIMES FOR SAME TEST TYPE. Resulting Agency Comment Performing Organization Information Site ID: QTW Name: [facility] Address: [address] [place] [address] [place] [address] Director: Jessica Vidales Omayra Pope NP LAB BLOOD ORDERABLES Final Result [facility] * Cologuard® colon cancer screening (11/04/2023 7:31 AM EDT) NONINV COLON CA DNA+OCC BLD SCRN STL-IMP Negative Negative 11/09/2023 7:16 PM EDT [facility] (CLIA #:[id number]) Comment: NEGATIVE TEST RESULT. A negative Cologuard result indicates a low likelihood that a colorectal cancer (CRC) or advanced adenoma (adenomatous polyps with more advanced pre-malignant features) is present. The chance that a person with a negative Cologuard test has a colorectal cancer is less than 1 in 1500 (negative predictive value >99.9%) or has an advanced adenoma is less than 5.3% (negative predictive value 94.7%). These data are based on a prospective cross-sectional study of 10,000 individuals at average risk for colorectal cancer who were screened with both Cologuard and colonoscopy. (Vincent Gordon. et al, N Engl J Med 2014;370(14):6774-7239) The normal value (reference range) for this assay is negative. COLOGUARD RE-SCREENING RECOMMENDATION: Periodic colorectal cancer screening is an important part of preventive healthcare for asymptomatic individuals at average risk for colorectal cancer. Following a negative Cologuard result, the [place] Cancer Society and U.S. Multi-Society Task Force screening guidelines recommend a Cologuard re-screening interval of 3 years. References: [place] [employer] Guideline for Colorectal Cancer Screening: https://www.cancer.org/cancer/isnbt-npvods-kyrwqd/jucvkqwsz-rmzozfasy-lvlstnf/ac s-rec ommendations.html.; Grant DK, Anyi PHILLIPS, Rehan CASTORENA, Colorectal Cancer Screening: Recommendations for Physicians and Patients from the U.S. Multi-Society Task Force on Colorectal Cancer Screening , Am J Gastroenterology 2017; 112:7095-5117. TEST DESCRIPTION: Composite algorithmic analysis of stool DNA-biomarkers with hemoglobin immunoassay. Quantitative values of individual biomarkers are not reportable and are not associated with individual biomarker result reference ranges. Cologuard is intended for colorectal cancer screening of adults of either sex, 45 years or older, who are at average-risk for colorectal cancer (CRC). Cologuard has been approved for use by the U.S. FDA. The performance of Cologuard was established in a cross sectional study of average-risk adults aged 50-84. Cologuard performance in patients ages 45 to 49 years was estimated by sub-group analysis of near-age groups. Colonoscopies performed for a positive result may find as the most clinically significant lesion: colorectal cancer [4.0%], advanced adenoma (including sessile serrated polyps greater than or equal to 1cm diameter) [20%] or non- advanced adenoma [31%]; or no colorectal neoplasia [45%]. These estimates are derived from a prospective cross-sectional screening study of 10,000 individuals at average risk for colorectal cancer who were screened with both Cologuard and colonoscopy. (Vincent Palafox et al, N Engl J Med 2014;370(14):7524-9849.) Cologuard may produce a false negative or false positive result (no colorectal cancer or precancerous polyp present at colonoscopy follow up). A negative Cologuard test result does not guarantee the absence of CRC or advanced adenoma (pre-cancer). The current Cologuard screening interval is every 3 years. ([place] Cancer Society and U.S. Multi-Society Task Force). Cologuard performance data in a 10,000 patient pivotal study using colonoscopy as the reference method can be accessed at the following location: www.MashMango.Spotivate/results. Additional description of the Cologuard test process, warnings and precautions can be found at www.Sanghvioguard.com. Stool specimen (specimen) 11/04/2023 7:31 AM EDT 11/05/2023 7:23 AM EDT Omayra Pope ADJUNCT MATHEMATICS INSTRUCTOR LAB MOLECULAR DIAGNOSTICS O RDERABLES Final Result [facility] (CLIA #:[id number]) [place] [address], [place] [phone] * FECAL GLOBIN BY IMMUNOCHEMISTRY (06/14/2022 12:00 PM EST) RESULT neg [facility] RESULT neg [facility] 06/14/2022 12:0 0 PM EST Maddie Spencer MD [facility] Final Result Performing Organization Address [facility]/ZIP Co de Phone Number [facility] from Last 3 Months or Most Recently Relevant to Health Maintenance Insurance [employer] Member Subscriber Plan / Payer (Ef fective 2024-Present) Name:Mario Medeiros Relation to Subscriber:Self Name:Mario Medeiros Payer ID:Not on file Type:Not on file Address: [place] [phone] Care Teams Power Supply Engineer Relationship Specialty Start Date End Date Maddie Spencer MD PCP - General Family Medicine 09/28/22 Maddie Spencer MD PCP - Medical [place] 05/23/2405/22
--- OUTSIDE RECORDS SUMMARY | 2024-12-05 13:51 | XMS_ITS | Encounter Summary ---
Author Organization [facility] Address [address] [place] [address] Care Team Providers Care Egg Setter Name Role Phone Naomi Barajas MD Unavailable [phone] WonderNaomi hammond MD Primary Care Provider [phone] Naomi Barajas MD Unavailable [phone] Encounter Details Date Type Department Care Team (Late st Contact Info) Description 11/15/2023 Clinisync Result Encounter [facility] External Department Unsolicited Provider, Generic External Data Social History Tobacco Use Types Packs/Day Years Used Date Smoking Tobacco: Never Passive Smoke Exposure: Past Smokeless Tobacco: Never Alcohol Use Standard Drinks/Week Comments Not Currently 0 (1 standard drink = 0.6 oz pur e alcohol) Sex and Gender Information Value Date Recorded Sex Assigned at Male 11/07/2023 8:12 PM EDT Legal Sex Male 8:01 PM EDT Gender Identity Male 11/07/2023 8:12 PM EDT Sexual Orientation Not on file documented as of this encounter Plan of Treatment Not on file documented as of this encounter Procedures Procedure Name Priority Date/Time Associated Diagnosis Comments CA ECHO DOPPLER COMPLETE 11/15/2023 6:41 PM EDT documented in this encounter Results * CA ECHO DOPPLER COMPLETE (11/15/2023 6:41 PM EDT) Anatomical Region Laterality Modality Other 11/15/2023 6:41 PM EDT Narrative 11/15/2023 6:42 PM EDT The [address] [address] Cardiology Report Signed Patient: Ang Resendiz MR#: [id number] : 1955 Acct:[id number] Age/Sex: 68 / M ADM Date: 11/15/23 Loc: CARD Attending Dr: JUAN SIFUENTES Ordering Physician: JUAN SIFUENTES Date of Service: 11/15/23 Procedure(s): CA echo doppler complete Accession Number(s): [id number] cc: JUAN SIFUENTES; NAOMI BARAJAS Patient Name: ANG RESENDIZ MR#: [id number] : 1955 Exam Date: 11/15/2023 Ordering Doctor: DR JUAN SIFUENTES M.D. ECHOCARDIOGRAM REPORT PROCEDURE: CA ECHO DOPPLER COMPLETE INDICATIONS: VSD, Nonrheumatic mitral regurgitation COMPARISON: None. DESCRIPTION: COMPLETE ECHOCARDIOGRAM Real-time transthoracic echocardiography with 2D, M-mode, spectral and color flow Doppler performed. QUALITY: Technical quality was good. LEFT VENTRICLE: Normal chamber size. Borderline left ventricular hypertrophy. Global left ventricular systolic function is normal. LV EF: Visual estimation of left ventricular ejection fraction is 65-70%. DIASTOLIC: Normal diastolic function. ATRIAL SEPTUM: LEFT ATRIUM: Mild dilatation. RIGHT ATRIUM: Moderate dilatation. RIGHT VENTRICLE: Mild dilatation. Normal right ventricular systolic function. TRICUSPID VALVE: Normal mobility and thickness. No stenosis with trivial regurgitation. Mild pulmonary hypertension. RVSP 36 mmHg MITRAL VALVE: Very mild anterior and posterior mitral valve leaflet prolapse. No evidence of mitral valve stenosis. There is no mitral annular calcification. Trivial mitral regurgitation. AORTIC VALVE: Normal trileaflet appearance. Thickened aortic valve. Normal leaflet mobility. No evidence of aortic valve stenosis. Mild aortic regurgitation. AORTIC ROOT: Normal diameter and appearance. PULMONIC VALVE: Normal thickness and mobility. No stenosis. Mild regurgitation. PERICARDIUM: No evidence of pericardial effusion. IVC: Moderate dilatation. Measuring 2.4 cm. Collapses with inspiration. PLEURA: CONCLUSION: 1. The left ventricle is normal in size and exhibits normal systolic function. LVEF is estimated at 65 to 70%. 2. Mild right ventricular dilatation with normal systolic function. 3. Mild to moderate biatrial dilatation. 4. Very mild bileaflet mitral valve prolapse without significant regurgitation or stenosis. 5. Mild aortic, tricuspid and pulmonic regurgitation. 6. Mildly elevated right-sided pressures. RVSP is 36 mmHg. 7. The previously described perimembranous ventricular septal defect was not well-visualized during this study. Adult Echocardiography Procedure Report Left Ventricle LVEDD (3.7 - 5.6 cm): 4.70 cm LVESD (2.2 - 4.0 cm): 2.91 cm LVIVS thickness (0.6 - 1.2 cm): 0.97 cm LVPW thickness (0.5 - 1.0 cm): 1.07 cm e': 0.16 m/s E - e': 7.79 LVOT Max Gradient: 3.37 mm[Hg] LVOT Area (cm2): 0.92 m/s Peak Velocity (LVOT): 0.92 m/s Mean Velocity (LVOT): 0.54 m/s LVOT Diameter 2.00 cm Left Ventricular Ejection Fraction: 65-70 % Left Atrium LA Volume Index (2D A2C): 32.39 ml/m2 Left Atrium Systolic Dimension: 3.54 cm Mitral Valve MV E to A Ratio: 1.83 Mitral Valve A-Wave Peak Velocity: 0.68 m/s Mitral Valve E-Wave Peak Velocity: 1.24 m/s Right Ventricle RV Internal Diastolic Dimension: 4.32 cm Aorta AO Root Diam: 3.23 cm Ascending Ao Diam: 2.77 cm Aortic Valve AoV Area (Peak Mau): 2.47 cm2, 2.47 cm2 AoV Area (VTI): 2.51 cm2, 2.51 cm2 Peak Velocity(Antegrade Flow): 1.17 m/s Peak Gradient(Antegrade Flow): 5.49 mm[Hg] Mean Velocity(Antegrade Flow): 0.77 m/s Mean Gradient(Antegrade Flow): 2.83 mm[Hg] Velocity Time Integral: 30.89 cm Tricuspid Valve Peak Velocity (Regurgitant Flow): 2.63 m/s, 2.60 m/s, 2.35 m/s Pulmonic Valve Mean Gradient: 2.27 mm[Hg], 2.70 mm[Hg] Mean Velocity: 0.70 m/s, 0.78 m/s Peak Velocity: 1.01 m/s Peak Gradient: 3.81 mm[Hg], 4.39 mm[Hg] Right Atrium Right Atrium Systolic Pressure: 134.72 ml, 134.72 ml Dictated by: Juan Sifuentes M.D. on 11/15/2023 at 18:27 Approved by: Juan Sifuentes M.D. on 11/15/2023 at 18:41 Dictated By: JUAN SIFUENTES Signed By: 11/15/231841 DD/ 40 TD/TT: County Supervisor: Procedure Note Radiology, Radiologist, - 11/15/2023 [place] [address] Cardiology Report Signed Patient: Ang Resendiz AMR#: [id number] : 5Acct:[id number] Age/Sex: 68 / MADM Date: 11/15/23 Loc: CARD Attending Dr: JUAN SIFUENTES Ordering Physician: JUAN SIFUENTES Date of Service: 11/15/23 Procedure(s): CA echo doppler complete Accession Number(s): [id number] cc: JUAN SIFUENTES; NAOMI BARAJAS Patient Name: ANG RESENDIZ MR#: [id number] : 1955 Exam Date: 11/15/2023 Ordering Doctor: DR JUAN SIFUENTES M.D. ECHOCARDIOGRAM REPORT PROCEDURE: CA ECHO DOPPLER COMPLETE INDICATIONS: VSD, Nonrheumatic mitral regurgitation COMPARISON: None. DESCRIPTION: COMPLETE ECHOCARDIOGRAM Real-time transthoracic echocardiography with 2D, M-mode, spectral and color flow Dopplerperformed. QUALITY: Technical quality was good. LEFT VENTRICLE: Normal chamber size. Borderline left ventricular hypertrophy. Global left ventricular systolic function is normal. LV EF: Visual estimation of left ventricular ejection fraction is65-70%. DIASTOLIC: Normal diastolic function. ATRIAL SEPTUM: LEFT ATRIUM: Mild dilatation. RIGHT ATRIUM: Moderate dilatation. RIGHT VENTRICLE: Mild dilatation. Normal right ventricular systolic function. TRICUSPID VALVE: Normal mobility and thickness. No stenosis with trivial regurgitation. Mild pulmonary hypertension. RVSP 36 mmHg MITRAL VALVE: Very mild anterior and posterior mitral valve leaflet prolapse. No evidence of mitral valve stenosis. There is no mitralannular calcification. Trivial mitral regurgitation. AORTIC VALVE: Normal trileaflet appearance. Thickened aortic valve. Normal leaflet mobility. No evidence of aortic valve stenosis. Mildaortic regurgitation. AORTIC ROOT: Normal diameter and appearance. PULMONIC VALVE: Normal thickness and mobility. No stenosis. Mild regurgitation. PERICARDIUM: No evidence of pericardial effusion. IVC: Moderate dilatation. Measuring 2.4 cm. Collapses withinspiration. PLEURA: CONCLUSION: 1. The left ventricle is normal in size and exhibits normal systolicfunction. LVEF is estimated at 65 to 70%. 2. Mild right ventricular dilatation with normal systolic function. 3. Mild to moderate biatrial dilatation. 4. Very mild bileaflet mitral valve prolapse without significantregurgitation or stenosis. 5. Mild aortic, tricuspid and pulmonic regurgitation. 6. Mildly elevated right-sided pressures. RVSP is 36 mmHg. 7. The previously described perimembranous ventricular septal defect wasnot well-visualized during this study. Adult Echocardiography Procedure Report Left Ventricle LVEDD (3.7 - 5.6 cm): 4.70 cm LVESD (2.2 - 4.0 cm): 2.91 cm LVIVS thickness (0.6 - 1.2 cm): 0.97 cm LVPW thickness (0.5 - 1.0 cm): 1.07 cm e': 0.16 m/s E - e': 7.79 LVOT Max Gradient: 3.37 mm[Hg] LVOT Area (cm2): 0.92 m/s Peak Velocity (LVOT): 0.92 m/s Mean Velocity (LVOT): 0.54 m/s LVOT Diameter 2.00 cm Left Ventricular Ejection Fraction: 65-70 % Left Atrium LA Volume Index (2D A2C): 32.39 ml/m2 Left Atrium Systolic Dimension: 3.54 cm Mitral Valve MV E to A Ratio: 1.83 Mitral Valve A-Wave Peak Velocity: 0.68 m/s Mitral Valve E-Wave Peak Velocity: 1.24 m/s Right Ventricle RV Internal Diastolic Dimension: 4.32 cm Aorta AO Root Diam: 3.23 cm Ascending Ao Diam: 2.77 cm Aortic Valve AoV Area (Peak Mau): 2.47 cm2, 2.47 cm2 AoV Area (VTI): 2.51 cm2, 2.51 cm2 Peak Velocity(Antegrade Flow): 1.17 m/s Peak Gradient(Antegrade Flow): 5.49 mm[Hg] Mean Velocity(Antegrade Flow): 0.77 m/s Mean Gradient(Antegrade Flow): 2.83 mm[Hg] Velocity Time Integral: 30.89 cm Tricuspid Valve Peak Velocity (Regurgitant Flow): 2.63 m/s, 2.60 m/s, 2.35 m/s Pulmonic Valve Mean Gradient: 2.27 mm[Hg], 2.70 mm[Hg] Mean Velocity: 0.70 m/s, 0.78 m/s Peak Velocity: 1.01 m/s Peak Gradient: 3.81 mm[Hg], 4.39 mm[Hg] Right Atrium Right Atrium Systolic Pressure: 134.72 ml, 134.72 ml Dictated by: Juan Sifuentes M.D. on 11/15/2023 at 18:27 Approved by: Juan Sifuentes M.D. on 11/15/2023 at 18:41 Dictated By: JUAN SIFUENTES Signed By:11/15/231841 DD/ 40 TD/TT: County Supervisor: us Generic External Data Provider [facility] Final Result documented in this encounter Visit Diagnoses Not on filedocumented in this encounter Care Teams Egg Setter Relationship Specialty Start Date End Date Naomi Barajas MD PCP - [facility] 03/23/21 05/22/24 Naomi Barajas MD PCP - General Family Medicine 09/28/22 Naomi Barajas MD PCP - Medical [facility] 05/23/2405/22 documented as of this encounter
--- OUTSIDE RECORDS SUMMARY | 2024-12-05 13:51 | XMS_ITS | Clinical Summary ---
Author Organization [employer] [facility] tem Address [id number] [address] [place] [address] Care Team Providers Care Hired Help Name Role Phone Maddie Spencer MD Primary Care Provider [phone] Social History Tobacco Use Types Packs/Day Years Used Date Smoking Tobacco: Never Assessed Childcare Answer Date Recorded Childcare Unknown 11/01/2018 Employment Answer Date Recorded Employment Unknown 11/01/2018 Purpose - Life Answer Date Recorded Purpose and direction in life Unknown Sex and Gender Information Value Date Recorded Sex Assigned at Not on file Legal Sex Male 11:26 AM EDT Gender Identity Not on file Sexual Orientation Not on file Plan of Treatment Health Maintenance Due Date Last Done Comments Depression Screening 1967 Tobacco Screening 1967 Adult BMI Screening 1973 DTaP,Tdap and Td Vaccines (1 - Tdap) 1974 Zoster (Shingles) Vaccine (1 of 2) 2005 Fall Risk Screening 2020 Influenza Vaccine 01/21/2025 Medical Devices Not on file Insurance [address] [place] [address] [employer] Care Teams Hired Help Relationship Specialty Start Date End Date Maddie Spencer MD [address] [place] [address] PCP - General Family Medicine 04/07/17
--- OUTSIDE RECORDS SUMMARY | 2024-12-05 13:51 | XMS_ITS | Encounter Summary ---
Author Organization [facility] Address [address] [place] [address] Care Team Providers Care Nutter Up Name Role Phone Maddie Spencer MD Primary Care Provider [phone] Reason for Visit * Reason Comments Med Refill Encounter Details Date Type Department Care Team (Late st Contact Info) Description 01/15/[address] [address] Emiliano Sifuentes MD [address] [facility] [address] Essential (primary) hypertension Social History Tobacco Use Types Packs/Day Years Used Date Smoking Tobacco: Never Smokeless Tobacco: Never Alcohol Use Standard Drinks/Week Comments Yes 0 (1 standard drink = 0.6 oz pur e alcohol) occasional Sex and Gender Information Value Date Recorded Sex Assigned at Male 11/28/2024 2:45 PM EDT Legal Sex Male 1:44 PM EDT Gender Identity Male 11/28/2024 2:45 PM EDT Sexual Orientation Heterosexual or Straight 01/2025 2:45 PM EDT documented as of this encounter Plan of Treatment Upcoming Encounters Date Type Department Care Team (Late st Contact Info) Description 12/10/2024 11:30 AM EDT Office Visit [facility] [address] [place] [address] Emiliano Sifuentes MD [address] [facility] [place] [address] documented as of this encounter Visit Diagnoses Diagnosis Essential (primary) hypertension Unspecified essential hypertension documented in this encounter Care Teams Nutter Up Relationship Specialty Start Date End Date Maddie Spencer MD PCP - General 07/16/22 documented as of this encounter
--- OUTSIDE RECORDS SUMMARY | 2024-12-05 13:51 | XMS_ITS | Encounter Summary ---
Author Organization [facility] Address [address] [place] [address] Care Team Providers Care Glass Beveller Name Role Phone Maddie Spencer MD Unavailable Maddie Spencer MD Primary Care Provider Maddie Spencer MD Unavailable Encounter Details Date Type Department Care Team (Late st Contact Info) Description 12/01/2022 Abstract [facility] [address] [place] [address] Maddie Spencer MD Social History [...] on filedocumented in this encounter Care Teams Glass Beveller Relationship Specialty Start Date End Date Maddie Spencer MD PCP - [facility] 03/23/21 05/22/24 Maddie Spencer MD PCP - General Family Medicine 09/28/22 Maddie Spencer MD PCP - Medical [place] 05/23/2405/22 documented as of this encounter
--- OUTSIDE RECORDS SUMMARY | 2024-12-05 13:51 | XMS_ITS | Clinical Summary ---
Author Organization [facility] Address [address] [place] [address] Care Team Providers Care Container Finishing Inspector Name Role Phone Maddie Spencer MD Primary Care Provider [phone] Allergies Active Allergy Reactions Criticality Noted Date Comments Penicillins 07/16/2022 Medications apixaban (Eliquis) 5 mg tabletIndications :Atrial flutter, unspecified type (CMS/HCC) TAKE 1 TABLET BY MOUTH TWICE A DAY 180 tablet 3 06/05/2024 Active atorvastatin (Lipitor) 40 mg tabletIndications :Coronary artery disease involving penobscot coronary artery of penobscot heart without angina pectoris Take 1 tablet (40 mg) by mouth at bedtime. 90 tablet 3 06/05/2024 Active lisinopril 10 mg tabletIndications :Essential hypertension Take 1 tablet (10 mg) by mouth in the morning. 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 10/11/2023 Mild mitral valve prolapse 10/11/2023 Obstructive sleep apnea (adult) (pediatric) 09/21 Occupational exposure to environmental pollution 10/11/2023 Paroxysmal atrial fibrillation 10/11/2023 Primary hypertension 10/11/2023 Pulmonary arterial hypertension 10/11/2023 Tinea manuum 10/11/2023 Atrial septal defect 10/11/2023 Cough variant asthma 09/01/2023 Multiple pulmonary nodules 09/01/2023 Coronary artery disease invo lving penobscot coronary artery of penob[place]ot heart without angina pectoris 07/16/2022 Assessment & Plan (07/16/2022 4:28 PM EST): Coronary artery disease is stable without concerning symptoms Another extended d/w pt and regarding noted 50% stenosis of RCA and [id number] CAD of all other coronary arteries, importance [...] and continue all medications. Atrial flutter 01/11/2022 Assessment & Plan (07/16/2022 4:25 PM EST): EKG today sinus bradycardia After extended discussion pt is willing to resume eliquis anticoagulation for stroke prophylaxis Script sent to pharmacy Chest pain 12/21/2021 Dyspnea on exertion 12/21/2021 Assessment & Plan (07/16/2022 4:28 PM EST): Currently stable Lightheadedness 12/21/2021 Family History Medical History Relation Name Comments Heart attack Father Relation Name Status Comments Father Social History Tobacco Use Types Packs/Day Years Used Date Smoking Tobacco: Never Smokeless Tobacco: Never Tobacco Cessation:Counseling Given: Not Answered Alcohol Use Standard Drinks/Week Comments Yes 0 (1 standard drink = 0.6 oz pur e alcohol) occasional [place] Safety & Environment Answer Date Rec orded Fear of Current or Ex-Partner Not on file Emotionally Abused Not on file 07/14/2023 Physically Abused Not on file 07/14/2023 Sexually Abused Not on file 07/14/2023 Physically or Sexually Abused Not on file Sex and Gender Information Value Date Recorded Sex Assigned at Male 11/28/2024 2:45 PM EDT Legal Sex Male 1:44 PM EDT Gender Identity Male 11/28/2024 2:45 PM EDT Sexual Orientation Heterosexual or Straight 01/2025 2:45 PM EDT Last Filed Vital Signs Vital Sign Reading Time Taken Comments Blood Pressure 122/68 11/21/2023 2:39 PM EDT Pulse 62 11/21/2023 2:39 PM EDT Temperature - - Respiratory Rate - - Oxygen Saturation 98% 11/21/2023 2:39 PM EDT Inhaled Oxygen Concentration - - Weight 91.2 kg (201 lb) 11/21/2023 2:39 PM EDT Height 182.9 cm (6') 11/21/2023 2:39 PM EDT Body Mass Index 27.26 11/21/2023 2:39 PM EDT Plan of Treatment Upcoming Encounters Date Type Department Care Team (Late st Contact Info) Description 12/10/2024 11:30 AM EDT Office Visit [facility] [address] [place] [address] Emiliano Sifuentes MD [address] [facility] [address] [facility] [place] [phone] Health Maintenance Due Date Last Done Comments CT Colonography 1955 Colonoscopy 1955 FIT-DNA 1955 FOBT 1955 Sigmoidoscopy 1955 Depression Screening 1967 Pneumococcal Vaccine: 50+ Years (1 of 2 - PCV) 1974 Zoster Vaccines (1 of 2) 2005 Fall Risk Screening 2020 COVID-19 Vaccine (1 - 2023-2 5 season) 2024 Colorectal Cancer Screening 11/03/2024 FIT 11/03/2024 11/04/2023 Influenza Vaccine (#1) 2025 Adult Tetanus 12/13/2032 12/13/2022, 05/08/2012 HIB Vaccines Aged Out No longer eligi ble based on patient's age to complete this topic HPV Vaccines Aged Out No longer eligi ble based on patient's age to complete this topic IPV Vaccines Aged Out No longer eligi ble based on patient's age to complete this topic Meningococcal B Vaccine Aged Out No l onger eligible based on patient's age to complete this topic Meningococcal Vaccine Aged Out No hany theo eligible based on patient's age to complete this topic Rotavirus Vaccines Aged Out No longer eligible based on patient's age to complete this topic Care Teams Container Finishing Inspector Relationship Specialty Start Date End Date Maddie Spencer MD PCP - General 07/16/22
--- OUTSIDE RECORDS SUMMARY | 2024-12-05 13:51 | XMS_ITS | Patient Health Record ---
Author Organization [facility] [place] Address [address] [place] [address] Care Team Providers Care Call Center Dispatcher Name Role Phone Omayra Pope CNP Primary Care Provider Yaron Sabillon Unavailable [phone] Allergies Allergen (clinical drug ingredient) Drug/Non Drug Allergy documented on EMR Reaction Allergy Type Onset Date Status Penicillin Edema Drug Allergy Active Reason For Referral No Information Medications Medication SIG (Take, Route, Frequency, Duration) Notes Start Date End Date Status Lisinopril 10 MG TAKE 1 TABLET BY OMAYRA TH EVERY DAY IN THE MORNING Oral for 90 Days Active Eliquis 5 MG 1 tablet Orally Twic e a day Active Atorvastatin Calcium 40 MG 1 tablet Oral ly Once a day Active Immunizations Vaccine Route Administration Date Status Comme nts Tdap (Boostrix) Unknown 12/13/2022 Administered Social History Tobacco Use: Social History Observation Description Date Details (start date - stop date) Never Smoker NA - NA Tobacco Control (Standard) Question Answer Notes Tobacco use: Nonsmoker Problems Problem Type SNOMED Code ICD Code Onset Dates Problem Status W/U Status Risk Notes Problem Anemia (039920116) Anemia, unspecified (D64.9) Active confirmed Problem Cough variant asthma (879109550) Cough variant asthma (J45.991) Active confirmed Problem Long-term current use of inhaled steroid (922432682) 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 (Z79.51) Active confirmed Problem Mitral valve prolapse (770253791) Mitral valve prolapse (I34.1) Active confirmed Problem Coronary artery disease (19770355) Coronary artery disease (I25.10) Active confirmed Cardiac catheterization 12/25/2021: RCA 50% Problem Obstructive sleep apnea (82143602) Obstructive sleep apnea (G47.33) Active confirmed PSG 01/12/2022: AHI 25 Problem Multiple pulmonary nodules (273762043) Multiple pulmonary nodules (R91.8) Active confirmed Vital Signs Heart Rate 68 /min 08/28/2024 Temperature 96.6 degrees Fahrenheit 08/28/2024 Respiratory Rate 18 /min 08/28/2024 Oximetry 97 % 08/28/2024 Blood pressure diastolic 61 mm Hg 08/28/2024 Height 72 in 08/28/2024 Blood pressure systolic 114 mm Hg 08/28/2024 Weight 198.8 lbs 08/28/2024 BMI 26.96 kg/m2 08/28/2024 Encounters Encounter Location Date Provider Diagnosis Pulmonary Medicine [address] [address] 03/28/2024 [facility] [address] [place] [address] 09/24/2024 [facility] [address] [place] [address] 06/05/2024 [facility] Obstructive sleep apnea G47.33 ; Cough variant asthma J45.991 and Multiple pulmonary nodules R91.8 Pulmonary Medicine [address] [place] [address] 08/28/2024 [facility] Obstructive sleep apnea G47.33 ; Cough variant asthma J45.991 and Multiple pulmonary nodules R91.8 Assessments Encounter Date Diagnosis (ICD Code) Assessment Notes Treatment Notes Treatment Clinical Notes Section Notes 08/28/2024 Obstructive sleep apnea (ICD-10 - G47.33) PSG 01/12/2022: AHI 25 Srzm-ex-kecd encounter performed with the patient to document continued need for PAP therapy. -Current DME: [facility] -PSG 01/12/2022: AHI 25 -CPAP Titration 02/09/2022: AHI 4 with CPAP [id number] -Compliance was reviewed from 07/28/2024 - 08/26/2024 -Total days used: 30/30 (100%) -Total of all days >4 hours of use: 30/30 (100%) -Current model, mode, & set pressure: AirSense 11 Auto [id number] -Residual AHI: 0.7 -Air leak (median): 4.1L/min -Mask/harness fitting: Well -Sleep quality: Will wake up almost every night with flatus -Daytime hypersomnolence: Denies with CPAP use -Recommendations: He is doing very well with his CPAP and states he is very happy with the change in DME from [facility] to [place]. He has superb compliance (100%). His gerri [...] change him from the set pressure of [id number] to auto-CPAP, which would be reasonable in this patient d/t his excellent compliance and residual AHI 0.7. Patient voiced agreement. Will send order for auto-CPAP [id number] - I asked patient to let us know how he tolerates the change in settings. Unless there are any other major issues, will have him return in 1 year. -The patient was reminded to continue to wear the PAP @ bedtime and with any naps. -This [id number]-[id number] visit comes with my authorization that the patient's DME may request to renew, reorder, and/or replace tubing, supplies, mask, and/or PAP device (if applicable). 06/05/2024 Obstructive sleep apnea (ICD-10 - G47.33) PSG 01/12/2022: AHI 25 Mnjk-um-npay encounter performed with the patient to document continued need for PAP therapy. -PSG 01/12/2022: AHI 25 -CPAP Titration 02/09/2022: AHI 4 with CPAP [id number] THE FOLLOWING IS HISTORICAL DATA FROM 08/30/2023: -Compliance was reviewed from: 08/01/2022 - 08/30/2022-Total days used: 26/30 (87%)-Total of all days >4 hours of use: 24/30 (80%)-Current mode & pressures: CPAP 10cm H2O -Initial AHI (01/12/2022): 25-Residual AHI: 1.4-Air leak: Median 4.2L/minWE ATTEMPTED NUMEROUS TIMES TO OBTAIN COMPLIANCE DATA FROM [facility], WHICH THEY NEVER SENT TO US. THIS SHOULD NOT IMPACT HIS COMPLIANCE IN MY PROFESSIONAL OPINION AND IF THERE IS AN ISSUE, IT SHOULD FALL ON [facility]. Both this office and the patient have had difficulty communicating with [facility] -we still have yet to obtain any [...] through a new DME; he previously had [facility] prior to [facility]. The patient voiced that [...] is attributed to his underlying cardiac issues. 08/28/2024 Cough variant asthma (ICD-10 - J45.991) Prior treatment: Breo Patient has no complaints today. 08/28/2024 Multiple pulmonary nodules (ICD-10 - R91.8) Monitored from 2018 - 2021 without any change. Repeat chest CT 11/21/2023 showed no changes from 10/12/2021. No further monitoring is required per current Fleischner Society guidelines. 06/05/2024 Multiple pulmonary nodules (ICD-10 - R91.8) Monitored from 2018 - 2021 without any change. Repeat chest CT 11/21/2023 showed no changes from 10/12/2021. No further monitoring is required per current Fleischner Society guidelines. Plan Of Treatment Next Appt Details Provider Name:Yaron Fernandez, 08/26/2025 08:00:00 AM, [address] [place], [address], Insurance Providers Payer Name Payer Address Payer Phone Subscriber Number Group Number Insured Name Patient Relationship to Insured Coverage Start Date Coverage End Date O ADVANTAGE CHOICE MEDICARE O [address] [place] [address] [phone] [id number] Mario Medeiros Self - patient is the insured Medical (General) History Medical History History ICD Code Obstructive sleep apnea G47.33 Cough variant asthma J45.991 Multiple pulmonary nodules R91.8 Mitral valve prolapse I34.1 Diverticulosis K57.90 Anemia, unspecified D64.9 Atrial flutter I48.92 Patent foramen ovale Q21.12 Coronary artery disease I25.10 Mitral regurgitation I34.0 Aortic regurgitation I35.1 Tricuspid regurgitation I07.1 Pulmonary regurgitation I37.1 Essential Hypertension I10 Ventricular septal defect Q21.0 Surgical History Surgery Date(Month/Year) Cardiac Catheterization 12/25/2021 vasectomy
--- NOTE | 2024-12-05 13:58 | CA_ITS ---
Patient Name: ANG RESENDIZ MR#: [id number] : 1955 Exam Date: 12/05/2024 Ordering Doctor: DR JUAN METZ M.D. ECHOCARDIOGRAM REPORT PROCEDURE: CA ECHO DOPPLER COMPLETE INDICATIONS: Atrial fibrillation, hypertension COMPARISON: None. DESCRIPTION: COMPLETE ECHOCARDIOGRAM Real-time transthoracic echocardiography with 2D, M-mode, spectral and color flow Doppler performed. QUALITY: Technical quality was good. LEFT VENTRICLE: Normal chamber size. Proximal septal hypertrophy (sigmoid septum). Calculated left ventricular ejection fraction is 63%. LV EF: Global left ventricular systolic function is normal; visually estimated ejection fraction is 60 to 65%. No significant wall motion abnormalities. DIASTOLIC: Not adequately assessed due to heart rhythm. ATRIAL SEPTUM: Visually appears intact. LEFT ATRIUM: Severe dilatation. RIGHT ATRIUM: Moderate dilatation. RIGHT VENTRICLE: Mild dilatation. Normal right ventricular systolic function. TRICUSPID VALVE: Normal mobility and thickness. No stenosis with mild to moderate regurgitation. No evidence of pulmonary hypertension. RVSP 31 mmHg MITRAL VALVE: Anterior and posterior mitral valve leaflet prolapse. There is no mitral annular calcification. Mild mitral regurgitation. Mildly thickened leaflets. AORTIC VALVE: Normal trileaflet appearance. No visible sclerosis. Normal leaflet mobility. No evidence of aortic valve stenosis. No aortic regurgitation. AORTIC ROOT: Normal diameter and appearance. PULMONIC VALVE: Normal thickness and mobility. No stenosis. Mild regurgitation. PERICARDIUM: No evidence of pericardial effusion. IVC: Collapses with inspiration. IVC is normal in size. CONCLUSION: 1. Global left ventricular systolic function is normal; visually estimated ejection fraction 60 to 65% 2. Right ventricle is mildly dilated with normal systolic function 3. Biatrial dilatation 4. Mild to moderate tricuspid regurgitation 5. Mild mitral regurgitation 6. Mild pulmonic regurgitation Adult Echocardiography Procedure Report Left Ventricle LVEDD (3.7 - 5.6 cm): 4.51 cm LVESD (2.2 - 4.0 cm): 2.93 cm LVIVS thickness (0.6 - 1.2 cm): 1.36 cm LVPW thickness (0.5 - 1.0 cm): 0.99 cm LVOT Max Gradient: 1.15 mm[Hg], 1.41 mm[Hg] LVOT Area (cm2): 0.57 m/s Peak Velocity (LVOT): 0.54 m/s, 0.59 m/s LVOT Diameter 2.23 cm Left Ventricular Ejection Fraction: 62.88 % Left Atrium LA Volume Index (2D A2C): 51.98 ml/m2 Left Atrium Systolic Dimension: 4.53 cm Mitral Valve Mitral Valve E-Wave Peak Velocity: 1.03 m/s Right Ventricle Aorta AO Root Diam: 3.62 cm Aortic Valve AoV Area (Peak Mau): 2.52 cm2, 2.27 cm2, 2.79 cm2 Peak Velocity(Antegrade Flow): 0.92 m/s, 0.83 m/s Peak Gradient(Antegrade Flow): 3.42 mm[Hg], 2.76 mm[Hg] Tricuspid Valve Peak Velocity (Regurgitant Flow): 2.60 m/s, 2.59 m/s, 2.22 m/s, 2.38 m/s, 2.27 m/s, 2.41 m/s Pulmonic Valve Peak Velocity: 0.74 m/s Peak Gradient: 1.70 mm[Hg], 3.02 mm[Hg], 1.97 mm[Hg] Right Atrium Right Atrium Systolic Pressure: 64.60 ml, 64.60 ml Dictated by: Kyle Tristan M.D. on 12/05/2024 at 18:13 Approved by: Kyle Tristan M.D. on 12/05/2024 at 18:17
== END 2024-12-05 13:45 | disposition home or self-care (01) ==
PROVIDERS: PCP Family Medicine; Visit Provider Internal Medicine Interventional Cardiology
DX: I34.0 Nonrheumatic mitral (valve) insufficiency (principal); I48.0 Paroxysmal atrial fibrillation; Q21.0 Ventricular septal defect
CPT/HCPCS: 93306